=== PATIENT | female | born 1965 | race Caucasian/White ===

== ENCOUNTER 2025-06-10 11:04 | Outpatient (AMB) | payer OTHER, SELFPAY ==
--- NOTE | 2025-06-10 11:10 | A.OFFPC_ITS ---
Vital Signs 06/10/25 11:17 Height 4 ft 8.1 in Weight 151 lb BMI 33.7 BP 138/75 Blood Pressure Location Rt brachial Position Sitting Respiration 14 Pulse 73 Pulse Source Pulse Oximeter Temp 97.9 F Temp Source Oral Intake Visit Reasons: [facility] CPE Intake Note: New patient visit Tire Maintenance Technician Required: No Accompanied by: Significant Other Allergies No Known Allergies Allergy (Verified 06/10/25 11:14) Tobacco use date assessed: 06/10/25 Dental Screening Did you have a dental visit in the last 12 months?: No Did you have a dental problem in the last 6 months where you did not have access to dental care?: No Was dental information given to patient?: Patient has dentist HPI HPI Comments History of Present Illness Details The patient is a 59 year old female with a past medical history of prediabetes, osteoarthritis, low back pain presenting for physical exam Prediabetes-Previously on medications. MSK: Chronic low back pain. Arthritic changes at L1-L3 on prior xray. Patient had [facility]. Will be undergoing right rotator cuff surgery. She had an MRI of the lumbar spine which showed more advanced arthritis than prior xray. declines referral Strong family history of heart disease, CAD. Saw Dr Aleman previously. Went through cardiac testing ~2017. Colonoscopy 08/2017-was due in [address] of [address] Grimes Recent abnormal mammogram left breast-follow up reassuring-cyst ROS CONSTITUTIONAL: Denies weight loss, fever and chills. HEENT: Denies changes in vision and hearing. RESPIRATORY: Denies SOB and cough. CV: Denies palpitations and CP GI: Denies abdominal pain, nausea, vomiting and diarrhea. : Denies dysuria and urinary frequency. MSK: Denies new myalgia and joint pain. SKIN: Denies rash and pruritus. NEUROLOGICAL: Denies headache PSYCHIATRIC: Denies recent changes in mood. PHYSICAL EXAM: GENERAL: Alert and oriented x 3. NAD EYES: EOMI. Anicteric. HENT: Moist mucous membranes. No scleral icterus. No cervical lymphadenopathy. LUNGS: Clear to auscultation bilaterally. CARDIOVASCULAR: Regular rate and rhythm. No murmur. No JVD. ABDOMEN: Soft, non-tender +bs EXTREMITIES: No edema. Non-tender. SKIN: No rashes or lesions. Warm. NEUROLOGIC: No focal neurological deficits. CN II-XII grossly intact PSYCHIATRIC: Cooperative. Appropriate mood and affect PFSH Surgical History (Updated 06/10/25 @ 11:28 by Kaitlynn Bernstein CMA) H/O section Hx of colonoscopy Family History (Updated 06/10/25 @ 11:27 by Kaitlynn Bernstein CMA) Mother Heart attack Father Heart attack Asthma Cardiovascular disease Son Dementia Other Substance abuse Social History (Updated 06/10/25 @ 11:28 by Kaitlynn Bernstein CMA) Housing: House Alcohol intake: current Patient Tobacco Use Status: Former Tobacco user (quit 11 years ago) Cigarette Packs Per Day: 1 Years Smoked: 40 e-Cigarette/Vaping Use: Never Used Second Hand Smoke Exposure: No service: No Current occupational status: employed Current occupation: central supply assistant Current occupational exposures/hazards: No Cognitive needs: No Hearing needs: Yes (bilateral hearing aid) Vision needs: Yes (glasses) Questionnaire PHQ-9 Over the last 2 weeks, how often have you been bothered by any of the following problems? 1. Little interest or pleasure in doing things: not at all 2. Feeling down, depressed, or hopeless: not at all 3. Trouble falling or staying asleep, or sleeping too much: more than half the days 4. Feeling tired or having little energy: not at all 5. Poor appetite or overeating: not at all 6. Feeling bad about yourself - or that you are a failure or have let yourself or your family down: not at all 7. Trouble concentrating on things, such as reading the newspaper or watching television: not at all 8. Moving or speaking so slowly that other people could have noticed. Or the opposite - being so fidgety or restless that you have been moving around a lot more than usual: not at all 9. Thoughts that you would be better off or of hurting yourself in some way: not at all Total score: 2 Depression Screening Interpretation: Negative Depression Screening Done: Yes 70927 - PHQ-9 Billing: Yes Source: Developed by Drs. Ramo Mendez, Lia Merrill, Kareem Gamino and colleagues, with an educational carmen from [employer]. Thrive Questionnaire Date Thrive assessed: 06/03/25 I am a: Patient What is your living situation today?: I have a steady place to live Within the past 12 months, did the food you bought not last and you didn't have the money to get more?: Never true Within the past 12 months, did you worry whether your food would run out before you got money to buy more?: Never true Do you have trouble paying for medicines?: No Do you have trouble getting transportation to medical appointments?: No Do you have trouble paying your heating and electricity bill?: No Do you have trouble taking care of your child, family member or friend?: No Do you have trouble with day-to-day activities such as bathing, preparing meals, shopping, managing finances, etc.?: No Are you currently unemployed and looking for a job?: No Are you interested in more education?: No Please select the resources that you would like help with: None Currently or been in a relationship where the following occur: No concerns reported THRIVE Score: 0 AUDIT C Alcohol Use Questionnaire (AUDIT-C) 1. How often do you have a drink containing alcohol?: Never 2. How many drinks containing alcohol do you have on a typical day when you are drinking?: 1 or 2 3. How often do you have six or more drinks on one occasion?: Never Total Score: 0 NISHI-7 AMB Questionnaire NISHI-7 Date NISHI - 7 assessed: 06/10/25 Feeling nervous, anxious, or on edge: 0 = Not at all Not being able to stop or control worryin = Not at all Worrying too much about different things: 0 = Not at all Trouble relaxin = Not at all Being so restless that it is hard to sit still: 0 = Not at all Becoming easily annoyed or irritable: 0 = Not at all Feeling afraid as if something awful might happen: 0 = Not at all Total NISHI-7 score (0-4 normal; 5-9 mild; 10-14 moderate; 15-21 severe): 0 Source: Developed by Drs. Ramo Mendez, Lia Merrill, Kareem Gamino and colleagues, with an educational carmen from [employer]. NISHI-7 Assessment Billing NISHI-7 Assessment Tool: NISHI-7 Assessment 83827 Physical exam (Primary Care) Vital Signs: Last Vital Signs Temp 97.9 F 06/10/25 11:17 Pulse 73 06/10/25 11:17 Resp 14 06/10/25 11:17 BP 138/75 06/10/25 11:17 BMI result Body Mass Index 33.7 Tobacco/Smoking Status: Tobacco use Status Tobacco use date assessed 06/10/25 06/10/25 11:19 Patient Tobacco Use Status Former Tobacco user (quit 11 06/10/25 11:28 years ago) e-Cigarette/Vaping Use Never Used 06/10/25 11:28 PHQ-9: PHQ-9 Score PHQ-9: Total score 2 06/10/25 11:45 Depression Screening Interpretation: Negative Thrive Assessment: Date of Thrive Assessment Date Thrive assessed 06/03/25 06/10/25 11:12 Currently or been in a relationship where the following occur: No concerns reported Coding Level of Care Code Est Pt Level 4 (80350) Complex EM visit Add On G2211 Diagnoses Physical exam Z00.00 Additional Codes NISHI-7 Assessment Billing - NISHI-7 Assessment Tool: NISHI-7 Assessment 91206 ([id number]) PHQ-9 - 98045 - PHQ-9 Billing: Yes ([id number]) Assessment & Plan Assessment & Plan (1) Physical exam: Code(s): Z00.00 - Encounter for general adult medical examination without abnormal findings Category: Medical Plan 59 year old female for cpe/reestablish Interval history reviewed preventive measures for age discussed GI referral for overdue colon cancer screening -h/o polyps Labs ordered Orders: Referrals 2 Gastroenterology Referral Z12.11 - Encounter for screening for malignant neoplasm of colon Medications: New Zepbound (tirzepatide (weight loss)) for 4 weeks 2.5 mg (0.5 mL) subcut QWEEK 2 mL 3RF NS E66.9 - Obesity, unspecified
[2025-06-10 11:17] VITALS: BP 138/75; PULSE 73; RESP 14; TEMP 36.6; BMI 33.7
== END 2025-06-10 11:59 | disposition home or self-care (01) ==
LOC: HO.HMCFM 11:05
PROVIDERS: Visit Provider Internal Medicine
DX: Z00.00 Encounter for general adult medical examination without abnormal findings (principal)

== ENCOUNTER 2025-06-10 11:04 | Outpatient (REF) | payer OTHER, SELFPAY ==
--- OUTSIDE RECORDS SUMMARY | 2025-06-05 16:30 | XMS_ITS | Encounter Summary ---
Author Organization [facility] Address [address] [place] [address] Care Team Providers Care Nurse Discharge Name Role Phone Kerry Shannon MD Primary Care Provider [phone] Reason for Visit * Reason Comments PT Treatment * Rehabilitation (Routine) - Pending Review Specialty Diagnoses / Procedures Referred By Contac t Referred To Contact Diagnoses Shoulder tendinitis, right Mabel Whittington MD [address] [place] [address] Phone: tel: fax: [address] [phone] Phone: tel: Referral ID Status Reason Start Date Expiration Date Visits Requested Visits Authorized [id number] Pending Review Support Services 05/22/2025 05/23/2026 99 99 Encounter Details Date Type Department Care Team ([facility] st Contact Info) Description 06/05/2025 4:30 PM EDT Treatment [facility] [address] [address] Mabel Whittington MD [address] [place] [id number] Leidy Rendon, PT [address] [place] [phone] Tendinitis of right shoulder (Primary Dx) Social History Tobacco Use Types Packs/Day Years Used Date Smoking Tobacco: Never Assessed Comments Unknown Sex and Gender Information Value Date Recorded Sex Assigned at Female 05/20/2025 10:47 AM EDT Legal Sex Female 1:31 PM EDT Gender Identity Female 05/20/2025 10:47 AM EDT Sexual Orientation Not on file documented as of this encounter Miscellaneous Notes * Daily/Treatment Note - Leidy Rendon, PT - 06/05/2025 4:30 PM EDT Images from the original note were not included. Physical Therapy Daily Note Referring Provider: MABEL WHITTINGTON Diagnoses ICD-10-CM 1. Tendinitis of right shoulder M77.8 Subjective: Daily Note Subjective - MonJune 05, 2025 Row Name Treatment from 06/05/2025 in [facility] Subjective Subjective I feel swollen on top of R shoulder. Treatment Performed: Interventions - MonJune 05, 2025 Row Name Treatment from 06/05/2025 in [facility] Manual therapy Justification to increase capsular ROM and decrease pain;to decrease spasm and pain 1 PROM R shoulder in supine all planes with increased R anterolateral pain x 5 reps 2 supine R shoulder Grade 2 GH jt mobs x 10 reps Neuro-muscular Re-education Justification to increase static and dynamic stability;to improve proprioception 1 prone R shoulder ext 0# x 5 reps-unable to tolerate due to increased R shoulder pain 2 prone R shoulder rows 0# x 5 reps-unable to tolerate due to increased R shoulder pain 3 prone R shoulder hor ABD 0# x 5 reps-unable to tolerate due to increased R shoulder pain 4 seated B shoulder pulleys flexion AAROM x 3 min 5 s/l R shoulder ABD to 90 degrees 0# x 5 due to fatigue and 5/10 VAS R shoulder pain 6 s/l R shoulder ER 0# x 5 due to fatigue and 5/10 VAS R shoulder pain 7 UBE x 4 min (2 min forward/2 min back) Assessment/ Plan: Daily Assessment and Plan - MonJune 05, 2025 Row Name Treatment from 06/05/2025 in [facility] Assessment/ Plan Assessment Patient demonstrated poor tolerance to PT with R shoulder increased anterior R pain Plan Continue ROM and strengthening. Objective Measurements: Shoulder Musculoskeletal Exam Goals Addressed This Visit's Progress PT LTG 1 On track Patient to increase shoulder Flexion ROM to 160 to be able to reach overhead into a cabinet in 8 weeks. Patient to increase R shoulder ABD ROM to 160 to be able to perform work duties in 8 weeks. Increase shoulder Flexion strength to 5/5 to be able to grocery shop in 8 weeks. 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 Patient will be able to lift/carry 5 pounds to be able to grocery shop in 8 weeks. Patient will be able to drive and turn steering wheel with involved shoulder with minimal pain in 4weeks. Patient will be independent with right upper extremity home exercise program within 4 weeks. PT Charges - Lissette June 05, 2025 Row Name Treatment from 06/05/2025 in [facility] Treatments-Timed Charges $ Manual Therapy (units)- 05903 1 Manual Therapy (minutes) 10 $ Neuromuscular Re-ed (units)- 21846 2 Neuromuscular Re-ed (minutes) 23 Therapy Totals TOTAL Number of TIMED UNITS 3 TOTAL Number of TIMED MINUTES 33 TOTAL Number of ALL UNITS Performed this Session 3 TOTAL Number of ALL MINUTES with the Patient This Session 33 documented in this encounter Plan of Treatment Upcoming Encounters Date Type Department Care Team (Late st Contact Info) Description 06/12/2025 6:00 PM ED[place] [address] Mabel Whittington MD [address] [place] [phone] Leidy Rendon, PT [address] [place] [address] documented as of this encounter Goals Goal Patient Goal Type Associated Problems Recent Progress Patient-Stated? Author PT LTG 1 Physical Therapy On track( 025 12:33 PM EDT) No Leidy Rendon, PT Note: Patient to increase shoulder Flexion ROM to 160 to be able to reach overhead into a cabinet in 8 weeks. Patient to increase R shoulder ABD ROM to 160 to be able to perform work duties in 8 weeks. Increase shoulder Flexion strength to 5/5 to be able to grocery shop in 8 weeks. 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 Patient will be able to lift/carry 5 pounds to be able to grocery shop in 8 weeks. Patient will be able to drive and turn steering wheel with involved shoulder with minimal pain in 4 weeks. Patient will be independent with right upper extremity home exercise program within 4 weeks. documented as of this encounter Visit Diagnoses Diagnosis Tendinitis of right shoulder- Primary documented in this encounter Care Teams Nurse Discharge Relationship Specialty Start Date End Date Kerry Shannon MD [address] [place] [phone] PCP - General Internal Medicine 02/20/25 documented as of this encounter
--- OUTSIDE RECORDS SUMMARY | 2025-06-09 12:00 | XMS_ITS | Encounter Summary ---
Author Organization [facility] Address [address] [place] [address] Care Team Providers Care Revenue Cycle Manager Name Role Phone Kerry Shannon MD Primary Care Provider [phone] Reason for Visit * Reason Comments PT Treatment * Rehabilitation (Routine) - Pending Review Specialty Diagnoses / Procedures Referred By Contheri t Referred To Contact Diagnoses Shoulder tendinitis, right Mabel Whittington MD [address] [place] [address] Phone: tel: fax: [address] [address] Phone: tel: Referral ID Status Reason Start Date Expiration Date Visits Requested Visits Authorized [id number] Pending Review Support Services 05/22/2025 05/23/2026 99 99 Encounter Details Date Type Department Care Team ([facility] st Contact Info) Description 06/09/2025 12:00 PM EDT Treatment [facility] [place] [address] Mabel Whittington MD [address] [place] [id number] Leidy Rendon, PT [address] [place] [phone] Tendinitis of right shoulder (Primary Dx) Social [...] Daily/Treatment Note - Leidy Rendon, PT - 06/09/2025 12:00 PM EDT Images from the original note were not included. Physical Therapy Daily Note Referring Provider: MABEL WHITTINGTON Diagnoses ICD-10-CM 1. Tendinitis of right shoulder M77.8 Subjective: Daily Note Subjective - MonJune 09, 2025 Row Name Treatment from 06/09/2025 in [facility] Subjective Subjective The R side of my neck hurt after PT, vs, R shoulder pain. Treatment Performed: Interventions - MonJune 09, 2025 Row Name Treatment from 06/09/2025 in [facility] Manual therapy Justification to increase capsular ROM and decrease pain;to decrease spasm and pain 1 PROM R shoulder in supine all planes with increased R anterolateral pain x 5 reps 2 supine R shoulder Grade 2 GH jt mobs x 10 reps 3 STM R LS/UT x 3 min Neuro-muscular Re-education Justification to increase static and dynamic stability;to improve proprioception 7 UBE x 4 min (2 min forward/2 min back) Therapeutic Procedures Justification to increase range of motion, strength and endurance 1 seated pulleys B shoulder flexion AAROM x 5 min 4 supine R shoulder AAROM flexion with wand x 10 reps 5 supine R shoulder AAROM ER with wand x 10 reps-with 5/10 VAS pain 6 supine R shoulder AAROM hor ABD with wand x 10 reps-with 5/10 VAS pain 7 supine R shoulder serratus punches x 10 reps Patient education Access Code: [email or web address] URL: [email or web address] Date: 06/09/2025 Preparedby: Leidy Rendon Exercises - Single Arm Serratus Punches in Supine with Dumbbell - 2 x daily - 7 x weekly - 2 sets - 10 reps - 3 hold Home Exercise Program updated Assessment/ Plan: Daily Assessment and Plan - MonJune 09, 2025 Row Name Treatment from 06/09/2025 in [facility] Assessment/ Plan Assessment Poor scapulohumeral rhythm with serratus punches in supine with R UE with increased R shoudler pain to 6-7/10 VAS s/p PT session. Plan Continue ROM and strengthening. Objective Measurements: Pain - MonJune 09, 2025 Row Name Treatment from 06/09/[address] [facility] Primary Pain Do you have pain? yes Over the past 24 hours, how bad has your pain been on a scale of 0 (no pain) to 10 (worst pain imaginable)? 6 Current Pain 6/10 At Best Pain Rating 3/10 At Worst Pain Rating 8/10 Pain location ant/pos R shoulder Quality dull ache;sharp;pulling;tight;radiating;discomfort Relieving factors change in position;medications;ice;rest Aggravating factors reaching, carrying, lifting Progression worsening Shoulder Musculoskeletal Exam Goals Addressed This Visit's [...] program within 4 weeks. PT Charges - MonJune 09, 2025 Row Name Treatment from 06/09/[address] [facility] Treatments-Timed Charges $ Manual Therapy (units)- 40462 1 Manual Therapy (minutes) 10 $ Neuromuscular Re-ed (units)- 62889 1 Neuromuscular Re-ed (minutes) 23 $ Therapeutic Procedures (units)- 14378 0 Therapeutic Procedure (minutes) 5 Therapy Totals TOTAL Number of TIMED UNITS 2 TOTAL Number of TIMED MINUTES 38 TOTAL Number of ALL UNITS Performed this Session 2 TOTAL Number of ALL MINUTES with the Patient This Session 38 documented in this encounter Plan of Treatment Upcoming Encounters Date Type Department Care Team (Late st Contact Info) Description 06/12/2025 6:00 PM EDT Treatment [facility] [address] [facility] [address] [place] [address] Mabel Whittington MD [address] [facility] [address] [place] [address] Leidy Rendon, PT [address] [place] [address] documented as of this encounter Goals Goal [...] Primary documented in this encounter Care Teams Revenue Cycle Manager Relationship Specialty Start Date End Date Kerry Shannon MD [address] [place] [phone] PCP - General Internal Medicine 02/20/25 documented as of this encounter
[2025-06-10 14:11] LABS: MANUAL DIFF FLAG NO
--- OUTSIDE RECORDS SUMMARY | 2025-06-10 14:21 | XMS_ITS | Clinical Summary ---
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 Administer with food avoid GI upset. 60 tablet 1 Active Active Problems No known active problems Encounters Date Type Department Care Team Description 06/09/2025 12:00 PM EDT [place] [address] Mabel Dutton MD McEvitt, Meghan K, PT Tendinitis of right shoulder (Primary Dx) 06/05/2025 4:30 PM EDT [place] [address] Mabel Dutton MD McEvitt, Meghan K, PT Tendinitis of right shoulder (Primary Dx) 05/30/2025 11:00 AM EDT [place] [address] Mabel Dutton MD McEvitt, Meghan K, PT Tendinitis of right shoulder (Primary Dx) 05/22/2025 2:00 PM EDT [facility] [address] [phone] Mabel Dutton MD Shoulder tendinitis, right (Primary Dx); 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 03/21/2025 Orders Only [facility] Department of Internal Medicine [place] [address] [place] [phone] Kerry Shannon MD 03/11/2025 Orders Only [facility] Department of Internal Medicine [place] [address] [place] [phone] Sharon Mckeon, ROSENDO Injury while ascending stairs (Primary Dx) from Last 3 Months Social History Tobacco Use Types Packs/Day Years Used Date Smoking Tobacco: Never Assessed Comments Unknown Sex and Gender Information Value Date Recorded Sex Assigned at Female 05/20/2025 10:47 AM EDT Legal Sex Female 1:31 PM EDT Gender Identity Female 05/20/2025 10:47 AM EDT Sexual Orientation Not on file Last Filed Vital Signs Vital Sign Reading Time Taken Comments Blood Pressure 155/62 09/05/2014 2:08 PM EST Pulse 82 09/05/2014 2:08 PM EST Temperature 36.9 C (98.5 F) 09/05/2014 2:08 PM EST Respiratory Rate 16 09/05/2014 2:08 PM EST Oxygen Saturation - - Inhaled Oxygen Concentration - - Weight 54.4 kg (119 lb 15.9 oz) 09/05/2014 2:08 PM EST Height 142.9 cm (4' 8.25 ) 03/12/2013 1 0:03 AM EDT Body Mass Index 26.66 03/12/2013 10:03 AM EDT Plan of Treatment Upcoming Encounters Date Type Department Care Team (Late st Contact Info) Description 06/12/2025 6:00 PM EDT [facility] [address] [facility] [address] [place] [address] Mabel Dutton MD [address] [facility] [address] [place] [address] Leidy Rendon, PT 7 [place] [address] Health Maintenance Due Date Last Done Comments HIV Screening 1977 DTaP/Tdap/Td Vaccines (1 - Tdap) 1983 Pap Smear (Ages 21-65) 1985 Colonoscopy 2009 Pneumococcal Vaccines 50+ (1 of 1 - PCV) 2014 Zoster (Shingles) Vaccine (1 of 2) 2014 Mammogram 07/26/2014 07/26/2012 Influenza Vaccine 05/02/2025 COVID-19 Vaccine (1 - 2023-2 5 season) 2025 RSV Vaccine 60 years and old er and Patients (1 - 1-dose 75+ series) 2039 Hepatitis C Virus Screening Completed 02/07/2013 Hepatitis B Vaccines Aged Out No long er eligible based on patient's age to complete this topic Goals Goal Patient Goal Type Associated Problems [...] extremity home exercise program within 4 weeks. Procedures Procedure Name Priority Date/Time Associated Diagnosis Comments XRAY EXTERNAL RESULT Routine 03/11/2025 10:08 AM EDT XRAY EXTERNAL RESULT Routine 03/11/2025 9:41 AM EDT HEPATITIS PANEL, ACUTE Routine 02/07/2013 10:21 AM EDT MAMMO - DIGITAL - SCREENING WITH CAD - G0202, [id number] Routine 07/26/2012 10:30 AM EDT from Last 3 Months or Most Recently Relevant to Health Maintenance Results * X-Ray External Result (03/11/2025 10:08 AM EDT) Only the most recent of2 resultswithin the time period is included. Anatomical Region Laterality Modality Computed Radiogr aphy External Provider MD [facility] Final Result * Hepatitis Panel, Acute (02/07/2013 10:21 AM EDT) Hepatitis A Antibody IgM 0.14 <0.80 S/CO [facility] CONVERSION Comment: NONREACTIVE *NOTE NEW REFERENCE RANGE EFFECTIVE 2012. Hepatitis B Core Antibody IgM NEGATIVE NEGATIVE [facility] CONVERSION Hepatitis B Surface Ag Screen NEGATIVE NEGATIVE [facility] CONVERSION Hepatitis C Antibody 0.14 0.00 - 0.79 S/CORATIO [facility] CONVERSION Comment:NONREACTIVE Hepatitis Interpretation: RESULTS INCONSISTENT WITH ACUTE HEPATITIS A, B OR C VIRUS INFECTION. [facility]TS CONVERSION Comment:RESULTS INCONSISTENT WITH ACUTE HEPATITIS A, B OR C VIRUS INFECTION. 02/07/2013 10:2 1 AM EDT Shilpi Giron MD LAB BLOOD ORDERABLES Final Result [facility] CONVERSION * MAMMO - Digital - SCREENING with CAD - G0202, [id number] (07/26/2012 10:30 AM EDT) Anatomical Region Laterality Modality Other Narrative 07/26/2012 10:30 AM EDT HISTORY: Patient is 47 years old and is seen for screening. The patient has a history of left excisional biopsy in 2008 - benign - calcifications removed. The patient has no personal history of cancer. The patient has the following family history of breast cancer: maternal aunt, at age 45. FILMS COMPARED: Comparison is made with prior exams dating back to 2007. MAMMOGRAM FINDINGS: The following digital mammographic views were obtained: bilateral craniocaudal, bilateral mediolateral oblique. Computer-aided detection was utilized by the radiologist in the interpretation of this examination. There are scattered fibroglandular densities (approximately 25-50% glandular). Finding 1: There is a post-surgical scar seen in the left breast at 9 oclock. Finding 2: There is an isodense, oval mass measuring 3 centimeters with obscured margins seen in the posterior third of the left breast at 2 oclock located 7 centimeters from the nipple. The finding is more prominent on the present exam. In the right breast, no suspicious masses, calcifications or other abnormalities are seen. IMPRESSION: Finding 1: Post-surgical scar in the left breast is benign. Finding 2: Mass in the left breast requires additional evaluation. Additional imaging (left craniocaudal spot compression, left mediolateral spot compression, and left ultrasound) is recommended. The patient will receive a lay summary letter identifying the results of this exam and their personal breast tissue composition. BIRADS Category 0: Incomplete: Need Additional Imaging Evaluation Based on the recommendation of the above report, [facility] will obtain prior images and/or contact the patient to schedule any additional imaging with an appropriate order. Our staff will contact your office if an order is required prior to scheduling the exam. If our recommendation is for a Breast MRI, that exam will need to be scheduled by your office due to insurance authorization requirements. Thank you for referring your patient to us, Cain Thompson MD (Electronically Signed - 07/27/2012 08:31) Copy: SHILPI GIRON MD Procedure Note Provider, MD Jose Luis - 04/15/2015 HISTORY: Patient is 47 years old and is seen for screening. The patienthas a history of left excisional biopsy in 2008 - benign - calcificationsremoved. The patient has no personal history of cancer. The patient hasthe following family history of breast cancer: maternal aunt, at age 45. FILMS COMPARED: Comparison is made with prior exams dating back [id number]. MAMMOGRAM FINDINGS: The following digital mammographic views wereobtained: bilateral craniocaudal, bilateral mediolateral oblique.Computer-aided detection was utilized by the radiologist in theinterpretation of this examination. There are scattered fibroglandular densities (approximately 25-50%glandular). Finding 1: There is a post-surgical scar seen in the left breast at 9oclock. Finding 2: There is an isodense, oval mass measuring 3 centimeters withobscured margins seen in the posterior third of the left breast at 2oclock located 7 centimeters from the nipple. The finding is moreprominent on the present exam. In the right breast, no suspicious masses, calcifications or otherabnormalities are seen. IMPRESSION: Finding 1: Post-surgical scar in the left breast isbenign. Finding 2: Mass in the left breast requires additional evaluation.Additional imaging (left craniocaudal spot compression, left mediolateralspot compression, and left ultrasound) is recommended. The patient will receive a lay summary letter identifying the results ofthis exam and their personal breast tissue composition. BIRADS Category 0: Incomplete: Need Additional Imaging Evaluation Based on the recommendation of the above report, [facility] willobtain prior images and/or contact the patient to schedule any additionalimaging with an appropriate order. Our staff will contact your office ifan order is required prior to scheduling the exam. If our recommendation is for a Breast MRI, that examwill need to be scheduled by your office due to insurance authorizationrequirements. Thank you for referring your patient to us, Cain Thompson MD (Electronically Signed - 07/27/2012 08:31) Copy: SHILPI GIRON MD us Conversion Provider [facility] LEGACY PROCEDURES Isra quentin Result - Final from Last 3 Months or Most Recently Relevant to Health Maintenance Insurance O Care Teams Real Estate Operations Manager Relationship Specialty Start Date End Date Kerry Shannon MD [address] [place] [address] Rd [place] [phone] PCP - General Internal Medicine 02/20/25
[2025-06-10 14:24] LABS: Hematocrit 42.7 % (37.0-47.0); Hemoglobin 13.7 g/dl (12.0-16.0); Imm Gran Abs Auto 0.03 X10*3/uL (0.00-0.03); Imm Gran Pct Auto 0.4 % (0.0-0.4); Lymphocytes Absolute Auto 4.0 X10*3/uL (1.2-4.9); Mean Corpuscular HGB Conc 32.1 g/dl (31.0-35.0); Mean Corpuscular Hemoglobin 28.8 pg (27.0-33.0); Mean Corpuscular Volume 89.9 fL (80.0-98.0); NRBC Abs Auto 0.000 X10*3/uL (0.0-0.012); NRBC Pct Auto 0.0 /100WBC (0.0-0.2); Platelet Count 420 X10*3/uL (160-400); Red Blood Count 4.75 X10*6/uL (4.20-5.50); White Blood Count 7.6 X10*3/uL (4.8-10.8)
[2025-06-10 15:03] LABS: Alanine Aminotransferase 22 U/L (0-31); Albumin Level 4.7 g/dL (3.5-5.0); Alkaline Phosphatase 77 U/L (39-117); Anion Gap 13 (12-20); Aspartate Amino Transferase 22 U/L (5-31); Blood Urea Nitrogen 11 mg/dL (9-16); Calcium 9.2 mg/dL (8.4-10.2); Carbon Dioxide 27 mmol/L (22-29); Chloride 107 mmol/L (96-108); Cholesterol 227 mg/dL (<200); Estimated Glomerular Filt Rate > 60; HDL Cholesterol 41 mg/dL (>40); Potassium 3.8 mmol/L (3.3-5.1); Sodium 143 mmol/L (135-145); Total Protein 7.5 g/dL (6.5-8.0); Triglycerides 226 mg/dL (<150)
== END 2025-06-10 11:05 | disposition home or self-care (01) ==
LOC: HO.WFDLDS 11:04
PROVIDERS: Visit Provider Internal Medicine
DX: Z13.228 Encounter for screening for other metabolic disorders (principal); Z13.0 Encounter for screening for diseases of the blood and blood-forming organs and certain disorders involving the immune mechanism; Z13.220 Encounter for screening for lipoid disorders; Z00.00 Encounter for general adult medical examination without abnormal findings; R92.8 Other abnormal and inconclusive findings on diagnostic imaging of breast; F17.210 Nicotine dependence, cigarettes, uncomplicated
CPT/HCPCS: 36415; 80053; 80061; 83036; 85025; 96127

== ENCOUNTER 2025-07-30 11:24 | Outpatient (REF) | payer OTHER, SELFPAY ==
[2025-07-30 14:04] LABS: MANUAL DIFF FLAG NO
[2025-07-30 14:07] LABS: Hematocrit 43.0 % (37.0-47.0); Hemoglobin 13.8 g/dl (12.0-16.0); Imm Gran Abs Auto 0.03 X10*3/uL (0.00-0.03); Imm Gran Pct Auto 0.3 % (0.0-0.4); Lymphocytes Absolute Auto 3.0 X10*3/uL (1.2-4.9); Mean Corpuscular HGB Conc 32.1 g/dl (31.0-35.0); Mean Corpuscular Hemoglobin 29.4 pg (27.0-33.0); Mean Corpuscular Volume 91.5 fL (80.0-98.0); NRBC Abs Auto 0.000 X10*3/uL (0.0-0.012); NRBC Pct Auto 0.0 /100WBC (0.0-0.2); Platelet Count 415 X10*3/uL (160-400); Red Blood Count 4.70 X10*6/uL (4.20-5.50); White Blood Count 8.9 X10*3/uL (4.8-10.8)
--- OUTSIDE RECORDS SUMMARY | 2025-07-30 14:41 | XMS_ITS ---
Author Name [facility] Organization Unknown History of Medication Use Medication Directions Dispensed Refills Start Date End Date Stat us diclofenac enteric coated (VOLTAREN) 75 MG EC tablet Take 1 tablet (75 mg total) by mouth 2 times daily (every 12 hours) as needed (pain). Administer with food avoid GI upset. 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 active EncounterDiagnosisAct H[facility]CT Shoulder tendinitis, right active EncounterDiagnosisAct H HCCT Left Achilles tendinitis active 2024-09-03 ProblemAct ENS_AONECT Encounters Encounter Type Encounter Reason Primary Diagnosis Location Date Ambulatory [facility] [place] 06/28/2025 Ambulatory Other enthesopathies, not elsewhere classified Other enthesopathies, not elsewhere classified [facility] 06/23/2025 Ambulatory Other enthesopathies, not elsewhere classified Other enthesopathies, not elsewhere classified [facility] 06/19/2025 Ambulatory Other enthesopathies, not elsewhere classified Other enthesopathies, not elsewhere classified [facility] 06/12/2025 Ambulatory Other enthesopathies, not elsewhere classified Other enthesopathies, not elsewhere classified [facility] 06/09/2025 Ambulatory Other enthesopathies, not elsewhere classified Other enthesopathies, not elsewhere classified [facility] 06/05/2025 Ambulatory Other enthesopathies, not elsewhere classified Other enthesopathies, not elsewhere classified [facility] 05/30/2025 Ambulatory [facility] [place] 05/24/2025 Ambulatory [facility] 05/22/2025 Ambulatory [facility] [place] 04/19/2025 Ambulatory [facility] 02/20/2025 Ambulatory Pain in right shoulder Pain in right shoulder [facility] 02/20/2025 Ambulatory [facility] [place] 09/04/2024 Ambulatory [facility] [place] 09/04/2024 Ambulatory [facility] [place] 08/15/2024 Ambulatory [facility] [place] 08/15/2024 Ambulatory [facility] [place] 08/15/2024 Ambulatory [facility] [place] 08/15/2024 Ambulatory [facility] [place] 08/15/2024 Ambulatory [facility] [place] 08/15/2024 Care Team Organization Name Specialty Phone Email Start Date End [facility], [facility] 07/22/2025 [facility] Kerry Shannon Primary Care 02/20/2025 07/22/20 [facility] Kerry Shannon Primary Care 02/20/2025 [facility] 01/27/2025
--- OUTSIDE RECORDS SUMMARY | 2025-07-30 14:41 | XMS_ITS | Clinical Summary ---
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 Administer with food avoid GI upset. 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 (Primary Dx); Shoulder tendinitis, right 06/27/2025 Orders Only [facility] [address] [phone] Mabel Dutton MD 06/23/2025 1:00 PM EDT Treatment [facility] [address] [address] Leidy Rendon PT Tendinitis of right shoulder (Primary Dx) 06/19/2025 5:30 PM EDT Treatment [facility] [address] [address] Leidy Rendon, PT Tendinitis of right shoulder (Primary Dx) 06/12/2025 5:30 PM EDT [facility] [place] [phone] Mabel Dutton MD McEvitt, Meghan K, PT Tendinitis of right shoulder (Primary Dx) 06/09/2025 12:00 PM EDT [facility] [place] [phone] Mabel Dutton MD McEvitt, Meghan K, PT Tendinitis of right shoulder (Primary Dx) 06/05/2025 4:30 PM EDT Treatment [facility] [place] [phone] Mabel Dutton, Leidy Garrett, PT Tendinitis of right shoulder (Primary Dx) 05/30/2025 11:00 AM EDT [facility] [place] [phone] Mabel Dutton, Leidy Garrett, PT Tendinitis of right shoulder (Primary Dx) 05/22/2025 2:00 PM EDT [facility] [address] [phone] Mabel Dutton MD Shoulder tendinitis, right (Primary Dx); 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 from Last 3 Months Social History Tobacco [...] Care Team (Late st Contact Info) Description 10/24/2025 9:00 AM EST Appointment [facility] [address] [place] [address] Mabel Dutton MD [address] [address] 10/24/2025 9:00 AM EST Appointment [address] [phone] Jonas Casarez, AIRCRAFT TECHNICIAN [address] [address] 10/30/2025 1:00 PM EST [facility] [address] [phone] Jonas Casarez, AIRCRAFT TECHNICIAN [address] [address] Health Maintenance Due Date Last Done Comments HIV Screening 1977 DTaP/Tdap/Td Vaccines (1 - Tdap) 1983 Pap Smear (Ages 21-65) 1985 Colonoscopy 2009 Pneumococcal Vaccines 50+ (1 of 1 - PCV) 2014 Zoster (Shingles) Vaccine (1 of 2) 2014 Mammogram 07/26/2014 07/26/2012 Influenza Vaccine 05/02/2025 COVID-19 Vaccine ( - 2023-2 5 season) 2025 RSV Vaccine 50 years and old er and Patients (1 - 1-dose 75+ series) 2039 Hepatitis C Virus Screening Completed 02/07/2013 Hepatitis B Vaccines Aged Out No long er eligible based on patient's age to complete this topic Procedures Procedure Name Priority Date/Time Associated Diagnosis Comments HEPATITIS PANEL, ACUTE Routine 02/07/2013 10:21 AM EDT MAMMO - DIGITAL - SCREENING WITH CAD - G0202, [id number] Routine 07/26/2012 10:30 AM EDT from Last 3 Months or Most Recently Relevant to Health Maintenance Results * Hepatitis Panel, Acute (02/07/2013 10:21 AM [...] VIRUS INFECTION. 02/07/2013 10:2 1 AM EDT Stanton Giron MD LAB BLOOD ORDERABLES Final Result [facility] CONVERSION * MAMMO - Digital - SCREENING with CAD - G0202, [id number] (07/26/2012 10:30 AM EDT) Anatomical Region Laterality [...] on the recommendation of the above report, [facility] will obtain prior images and/or contact [...] MD (Electronically Signed - 07/27/2012 08:31) Copy: STANTON GIRON MD Procedure Note Provider, MD Jose [...] is made with prior exams dating back [id number]. MAMMOGRAM FINDINGS: The following digital mammographic views [...] on the recommendation of the above report, [facility] willobtain prior images and/or contact the [...] MD (Electronically Signed - 07/27/2012 08:31) Copy: STANTON GIRON MD us Conversion Provider IMG LEGACY PROCEDURES Isra quentin Result - Final from Last 3 Months or Most Recently Relevant to Health Maintenance Insurance O Care Teams Microbiological Lab Technician Relationship Specialty Start Date End Date Kerry Shannon MD [address] [place] [phone] PCP - General Internal Medicine 02/20/25
--- OUTSIDE RECORDS SUMMARY | 2025-07-30 14:41 | XMS_ITS | Data Portability ---
Author Organization [facility] Polina Guerra AONE Creede Address [address] [place] [address] Care Team Providers Care Customer Greeter Name Role Phone LUCY GIBBSAH Primary Care Provider ALVAREZ ROSSI Story Teller [phone] Assessment Encounter Date Assessment Date Assessment LastModified by Organization Details LastModified Time 08/15/2024 08/15/2024 59 year old female with acute Achilles insertional tendinitis. Very low suspicion for full thickness rupture. I reviewed the nature of this with her and we discussed treatment options. She was fit for a walking boot today with a heel lift. She can weightbear as tolerated. I also gave her a referral for physical therapy. She was advised the boot can be removed for driving, rest and hygiene. She will return to the office in 3 weeks for recheck. Can use anti-inflammator ies and/or Tylenol for relief as needed with appropriate over the counter dosing and GI precautions. Icing protocol reviewd. Questions invited and answered. Patient verbalizes understanding and agreement with plan. Patient was prescribed a tall cam boot for above diagnosis. The patient is ambulatory but has weakness and/or instability of their Left foot which requires stabilization from this semi-rigid / rigid orthosis to improve their function. Patient was seen and evaluated by Ac Painter PA-C in indirect conjunction with Documenting Provider: Blas Betancur MD He/She agrees with history, physical examination, tests/diagnostic imaging, and treatment plan. [email or web address] Not available 09/03/2024 23:16:06 09/12/2024 09/12/2024 Her Achilles insertional tendinitis has resolved after a brief course of immobilization. She will continue with at home exercises and modify activity as needed. She does not wish to attend physical therapy at this time. She will follow-up on an as-needed basis. Patient was seen and evaluated by Abhijit Sweet PA-C in indirect conjunction with Documenting Provider: Elizabeth Post MD He/She agrees with history, physical examination, tests/diagnostic imaging, and treatment plan [email or web address] Not available 09/12/2024 16:52:20 Plan of Treatment Reminders Order Date Submit Date Provider Last Modified By Organization Details Last Modified Time Details Appointments None record ed. Lab None record ed. Referral None record ed. Procedures None record ed. Surgeries None record ed. Imaging None record ed. Medication Orders None record ed. Patient TargetsNo targets recorded. Patient InstructionsNo instructions recorded. Reason for Referral None Reported. Problems Name Problem SNOMED Code Status Onset Date Resolution Date Notes Provider Name and Address Organization Details Recorded Time Left Achilles tendinitis 9528945331172 02 Active 2023 AC PAINTER PA-C [address], [facility] [place], [address], [place] [facility] 23:16:38 Problem Notes None recorded. Procedures Surgical History Date Name Laterality Status Provider Name and Address Organization Details Recorded Time section completed [facility] 08/15/2024 13:31:38 Imaging Results None recorded. Procedure Notes None recorded. Medical Equipment None Reported. Allergies No known drug allergies Medications Not known to be on any medication Vitals Date Recorded Body height Body mass index (BMI) Body weight Provider Name and Address Organization Details Last Updated DateTime 08/15/2024 142.24 cm 31.8 kg/m2 93445.[address] [facility] 08/15/2024 13:30:51 Date Recorded Body height Body mass index (BMI) Body weight Provider Name and Address Organization Details Last Updated DateTime 09/12/2024 142.24 cm 31.8 kg/m2 62282.12 g Melanie [facility] 09/12/2024 15:48:43 Social History None recorded. Functional Status Question Answer Note LastModified by Organizat ion Details LastModified Time Are you currently employed? 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 Family History Relationship Description Onset Age of this Age Resolved Age Notes LastModified by Organization Details LastModified Time Mother Heart disease [email or web address] Not available 2023 13:31:32 Father Heart disease [email or web address] Not available 2023 13:31:32 Brother Heart disease [email or web address] Not available 2023 13:31:32 Medical History Condition Response Coronary Artery Disease N Gout N Hyperthyroidism N MRSA N Blood Transfusion N Emphysema N Depression N COPD N Hypothyroidism N Pacemaker N Vascular Disease N Gastrointestinal Disease N Anxiety Disorder N Autoimmune disease N Arthritis N Cancer N Stroke N High Cholesterol N Neurologic Disorder N Liver Disease N Organ Transplant N Rheumatoid Arthritis N Arrhythmia N Fibromyalgia N Kidney Disease N Allergies/Hayfever N Adverse Reaction to Anesthesia N Thyroid Problems N Anemia N Brain Injury N Heart Attack ([place]) N Osteopenia N Diabetes N Bleeding Disorder N Seizures/Epilepsy N AIDS/HIV N Congestive Heart Failure (CHF) N Asthma N Amputation N Reflux/GERD N Sleep Apnea N Aneurysm N Hepatitis N Heart Disease N Pulmonary Embolism N Hypertension N Osteoporosis N Gynecological HistoryNo gynecological history recorded. Obstetrics History GPAL:G 0 P 0 0 0 0 Past Encounters Encounter ID Performer Location Encounter Start Date Encounter Closed Date Diagnosis/Indication Diagnosis SNOMED-CT Code Diagnosis ICD10 Code Diagnosis IMO Codes Diagnosis Note [id number] AC PAINTER PA-C [facility] [address] [place] [address], [address] [place] [address] 08/15/2024 13:18:04 08/15/2024 14:39:11 Left Achilles tendinitis [id number] 17398 M76.62 [id number] ABHIJIT SWEET PA-C [address] [place] [address] 09/12/2024 15:31:28 09/12/2024 15:56:35 Left Achilles tendinitis [id number] 76201 M76.62 [id number] Health Concerns Section Related Observation LastModified by Organization Detai ls LastModified Time None Recorded Concern Status LastModified by Organization Details LastModified Time None Recorded Advance Directives Directive None Recorded Payers Insurance Date Sequence Insurance Name Policy Number Policy Frausto Covered Member ID Frausto Member ID Guarantor Name 12/23/2024 1 [facility] (INDEMNITY) Dodie Lambert [id number] Dodie Lambert 08/15/2024 1 [employer] ([facility]) [id number] Dodie Lambetr [id number] Dodie Lambert 09/16/2024 [employer] [facility] Dodie Lambert Notes Date Note Type Note Provider Name and Address Organization Details Recorded Time 08/15/2024 text/html ROS as noted in the HPI 59 year-old female presents to the urgent care today for evaluation of acute left foot pain and swelling she localizes predominantly over the posterior aspect of the ankle to heel. No trauma or injury recalled. She states last week her heel started to hurt a little and she felt like there was a lump on the back of her foot. She was evaluated at an outside urgent care yesterday and had x-rays done, however she does not have them with her. She was told these were negative and defers repeat today. She describes her pain as aching and stabbing. Rates this as moderate and worse with prolonged weight-bearing. Relieved with rest. She has not tried anything in the way of treatment. Denies numbness or tingling. Denies radiation of pain to the anterior foot or ankle. She works as a medical technologist. No reported past medical history. Never smoker. AC PAINTER PA-C [address], [place], [address], [place] [facility] 09/03/2024 23:16:52 09/12/2024 text/html ROS as noted in the HPI Dodie Lambert is a 59 year-old female presents today for repeat evaluation of left achilles pain. Her pain has significantly improved since wearing the cam boot. She also notes that she quit her job so she is no longer on her feet for long periods of time. She did find a new job that we will have mostly seated work. She has no swelling. She is not requiring any pain medication. From 08/15/24 (LILIAN): and swelling she localizes predominantly over the posterior aspect of the ankle to heel. No trauma or injury recalled. She states last week her heel started to hurt a little and she felt like there was a lump on the back of her foot. She was evaluated at an outside urgent care yesterday and had x-rays done, however she does not have them with her. She was told these were negative and defers repeat today. She describes her pain as aching and stabbing. Rates this as moderate and worse with prolonged weight-bearing. Relieved with rest. She has not tried anything in the way of treatment. Denies numbness or tingling. Denies radiation of pain to the anterior foot or ankle. She works as a medical technologist. No reported past medical history. Never smoker. ABHIJIT SWEET PA-C [address], [place], [address], [place] [facility] 10/31/2024 16:17:52 OBGyn Episode No OBEpisode recorded.
== END 2025-07-30 11:25 | disposition home or self-care (01) ==
LOC: HO.WFDLDS 11:24
PROVIDERS: Visit Provider Internal Medicine
DX: R79.89 Other specified abnormal findings of blood chemistry (principal)
CPT/HCPCS: 85025